=== PATIENT | female | born 1945 | race Caucasian/White ===

== ENCOUNTER 2019-08-18 10:38 | Outpatient (CLI) | payer MEDICARE ==
[2019-08-18 12:37] LABS: #Eosinphils 0.1 thou/uL (0.0-0.7); #Lymphocytes 1.2 thou/uL (1.20-3.40); #Monocytes 0.3 thou/uL (0.11-0.59); #Neutrophils 2.8 thou/uL (1.40-6.50); %Basophils 0.6 % (0.0-1.0); %Eosinophils 2.9 % (0.0-10.0); %Lymphocytes 27.8 % (21.0-51.0); %Monocytes 6.1 % (0.0-10.0); %Neutrophils 62.6 % (42.0-75.0); Hemoglobin 14.2 g/dL (12.0-16.0); Mean Corpuscular HGB CONC 34.9 g/dL (32.0-36.0); Mean Corpuscular Hemoglobin 29.7 pg (27.0-31.0); Mean Platelet Volume 8.8 fL (7.4-10.4); Platelet Count 225 thou/uL (130-400); Red Blood Cell (RBC) Count 4.79 mill/uL (4.20-5.40); White Blood Cell (WBC) Count 4.4 thou/uL (4.8-10.8)
[2019-08-18 12:43] LABS: Bacteria/HPF None Seen HPF (None Seen); Bilirubin Negative (Negative); Blood, Urine Negative (Negative); Clarity Clear (Clear); Glucose, Urine (Dipstick) Normal (Negative); Leukocyte Negative Leu/uL (Negative); Nitrite Negative (Negative); Protein, Urine (Dipstick) Negative (Neg-Trace); RBC/HPF 0-3 HPF (0-3); Squamous Epithelial 0-3 HPF (0-3); Urobilinogen Normal mg/dL (Less than 2); WBC/HPF 0-3 HPF (0-3)
[2019-08-18 12:57] LABS: Anion Gap 14 mmol/L (10-20); BUN (Urea Nitrogen) 13 mg/dL (9.8-20.1); Calc. Creatinine Clearance 0 mL/min (70-130); Calcium 9.2 mg/dL (7.8-10.44); Carbon Dioxide 24 mmol/L (23-31); Chloride 106 mmol/L (98-107); Estimated GFR-MDRD 71; Glucose 82 mg/dL (83-110); Potassium 4.7 mmol/L (3.5-5.1); Sodium 139 mmol/L (136-145)
--- NOTE | 2019-08-20 17:24 | EKG ---
Test Reason : Blood Pressure : / mmHG Vent. Rate : 058 BPM Atrial Rate : 058 BPM P-R Int : 176 ms QRS Dur : 076 ms QT Int : 442 ms P-R-T Axes : 033 020 034 degrees QTc Int : 433 ms Sinus bradycardia with marked sinus arrhythmia Otherwise normal ECG No previous ECGs available Confirmed by ROM URRUTIA (2) on 08/20/2019 5:23:40 PM Referred By: YULIA Confirmed By:ROM URRUTIA
== END 2019-08-18 10:39 | disposition home or self-care (01) ==
LOC: LABBT 10:38
PROVIDERS: ATTEND Orthopaedic Surgery Hand Surgery
DX: Z01.818 Encounter for other preprocedural examination (principal); M18.12 Unilateral primary osteoarthritis of first carpometacarpal joint, left hand
CPT/HCPCS: 80048; 81001; 85025; 93005; 93010

== ENCOUNTER 2019-08-25 05:49 | Day surgery (SDC) | payer MEDICARE ==
[2019-08-18 11:00] VITALS: BMI 22.6
[2019-08-25] MEDS ORDERED: Famotidine/PF 20 mg/2ml Vial ONE (06:13)
[2019-08-25] MEDS ORDERED: Fentanyl 100 MCG/2 ML VIAL ONE ×2 (06:13→06:45)
[2019-08-25] MEDS ORDERED: Midazolam HCl 2 mg/2 ml Vial ONE (06:45)
[2019-08-25] MEDS ORDERED: Betamet Acet/Betamet Na Ph 30 MG/5 ML VIAL ONE (06:46)
[2019-08-25] MEDS ORDERED: Bupivacaine PF 0.5% 30 ML VIAL ONE (06:46)
[2019-08-25] MEDS ORDERED: Sodium Chloride 0.9% 10 ML ONE (06:46)
[2019-08-25] MEDS ORDERED: Bacitracin Zinc Ointment 30 gm TUBE ONE (06:46)
[2019-08-25] MEDS ORDERED: Bupivacaine HCl 0.5%/Epinephrine 1:200,000/PF 30 ml Vial ONE (10:48)
[2019-08-25] MEDS ORDERED: Ondansetron PF 4 MG/2 ML Vial ONE (11:13)
[2019-08-25] MEDS ORDERED: ePHEDrine 50 MG/ML VIAL ONE (11:13)
[2019-08-25] MEDS ORDERED: PROPOFOL 200 MG/20 ML VIAL ONE (11:13)
[2019-08-25] MEDS ORDERED: Dexamethasone 20 MG/5 ML VIAL ONE (11:13)
[2019-08-25] MEDS ORDERED: Lidocaine 1% PF 5 ML VIAL ONE (11:13)
[2019-08-25] MEDS ORDERED: Rocuronium Bromide 10 MG/ML (10ML VIAL) ONE (11:13)
[2019-08-25] MEDS ORDERED: Glycopyrrolate 0.2 MG/ML 5 ML SYRINGE ONE (11:13)
[2019-08-25] MEDS ORDERED: Ketorolac Tromethamine 30 MG/ML VIAL ONE (11:22)
--- NOTE | 2019-08-25 15:02 | OP ---
DATE OF PROCEDURE: 08/25/2019 PREOPERATIVE DIAGNOSES: 1. 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 2. Carpometacarpal joint severe stage IV osteoarthritis. 3. Complete obliteration of the carpometacarpal joint with marked osteophyte formation and subluxation and involvement of the scaphotrapezial joint as well. 4. Over 65-degree laxity with hyperextension of the metacarpophalangeal joint at the same thumb. PROCEDURE PERFORMED: 1. Metacarpophalangeal joint capsulodesis with joint pinning. 2. Flexor carpi radialis tendon transfer to the thumb. 3. Ligament replacement tendon interposition, carpometacarpal joint arthroplasty, left thumb. TOURNIQUET TIME: 121 minutes. ESTIMATED BLOOD LOSS: 20 mL. INJECTABLE: None. ANESTHESIA: Block to augment intubation with LMA. DESCRIPTION OF PROCEDURE: After successful general endotracheal anesthesia, the limb was prepped and draped. The patient had marked hyperlaxity, so after doing appropriate time-out, obtaining appropriate consent matched with the procedure, we then exsanguinated the limb, inflated tourniquet to 250 mmHg pressure began with a zigzag incision over the center of the MP joint of the thumb. We released the A1 seble, underneath was the thick palmar capsule and plate. We then made a V-shaped incision, elevated it down to bone. There was joint fluid escaping. We then used a 4-0 Prolene with 5 sutures in a [id number] technique to advance the proximal part underneath the distal part and shortened by about 1.5 to 2 mm. We placed the suture in position, flexed the thumb to 25 degrees of flexion and passed the K-wire across it, which the C-arm confirmed to be in excellent position, and then, cut the wire and bent it with 2 mm protruding, but bent. The patient then had these sutures tied. We then closed the incision with interrupted 4-0 nylon in a simple pattern. We made a curvilinear incision at the base of the thumb, carried through skin and subcutaneous tissue, identified the interval between the extensor pollicis brevis and the abductor pollicis, entered the capsule. We tagged the capsule with a 2-0 undyed Vicryl. We then the thenar muscle and exposed, beginning circumferentially from radial, superior, and distal to ulnar superior and distal. The soft tissue surrounded in the trapezium. We then placed a large K-wire inside the trapezium, identified, and used as a handle. We identified the flexor carpi radialis tendon and made a zigzag incision proximal third of forearm and the distal one-third forearm to harvest it. Once we had the flexor radialis from the ulnar side of the trapezium, we then completely lifted the joint capsule off the scaphoid and that off the trapezoid lifted and then removed. In the large posterior ulnar capsule, we placed a heavy 3-0 suture. We then used a Hohmann, protected the ulnar side of the base of the thumb metacarpal and beginning at approximately 12 mm along the proximal radial edge of the metacarpal bone. We drilled a 3.5 tunnel, expanded it slightly, and the tunnel was oblique and angled about 40 degrees and exited the thumb at the junction of the metacarpal bone with the chondral surface. We removed all osteophytes, we expanded it, we curetted it, it was approximately 4 mm tunnel. We harvested the flexor carpi radialis using the 2 incisions as listed above, then denuded of all muscle and passed it from the proximal ulnar side to the distal radial side. We held it in appropriate position in relative to the base of the index finger metacarpal, and then reduced it anatomically, maintaining the [place] line of the metacarpal bases. We then took the tendon that was already passed to tension it in 6 different places with Prolene, 2 radial to the abductor pollicis longus, and 2 along the base of the thumb metacarpal, ulnar to the abductor pollicis longus. We then weaved "anchovy type" weave with 2 heavy ends of the 3-0 suture, Prolene, using a Iraj needle and then tied this deep to the joint capsule in the interspace created by trapeziectomy. We then closed the capsule, that was already tagged with 2-0 undyed Vicryl, repaired the musculotendinous junction of thenar muscle back with 2-0 undyed Vicryl and released the tourniquet. We obtained hemostasis. We closed all the remaining wounds including the 2 forearm FCR harvest sites and the primary thumb CMC incision with a running 4-0 Monocryl and then Steri-Strips. The patient left the operating room with bulky dress and a palmar thumb spica splint. No evidence of anesthetic or operative complication. Job ID: [id number]
--- NOTE | 2019-08-30 15:35 | RAD ---
LEFT HAND THREE VIEWS: 08/30/19 HISTORY: Intraoperative films. A series of C-arm films which show postoperative change at the first metacarpophalangeal joint level and pin placement at the base of the second metacarpal. There has been resection of the trapezium. IMPRESSION: Postoperative changes of the wrist region. POS: [facility]
== END 2019-08-25 14:22 | disposition home or self-care (01) ==
LOC: SDC 05:49
PROVIDERS: ATTEND Orthopaedic Surgery Hand Surgery
PROC: 0LU607Z Supplement Left Lower Arm and Wrist Tendon with Autologous Tissue Substitute, Open Approach (ICD-10-PCS; principal; 2019-08-25)
PROC: 0LB60ZZ Excision of Left Lower Arm and Wrist Tendon, Open Approach (ICD-10-PCS; 2019-08-25)
PROC: 0RQT0ZZ Repair Left Carpometacarpal Joint, Open Approach (ICD-10-PCS; 2019-08-25)
PROC: 0RGV04Z Fusion of Left Metacarpophalangeal Joint with Internal Fixation Device, Open Approach (ICD-10-PCS; 2019-08-25)
DX: M18.12 Unilateral primary osteoarthritis of first carpometacarpal joint, left hand (principal); M25.742 Osteophyte, left hand; Z79.899 Other long term (current) drug therapy
CPT/HCPCS: 25312; 25447; 26516; 73130; 76000; C1769; J0131; J0670; J0702; J1100; J1885; J2001; J2250; J2405; J2704; J3010; J3490; S0020; S0028

== ENCOUNTER 2021-12-18 14:34 | Outpatient (CLI) | payer MEDICARE ==
[2021-12-18 17:35] LABS: Bilirubin Neg (Negative); Blood, Urine Negative (Negative); Clarity Clear (Clear); Glucose, Urine (Dipstick) Normal (Negative); Ketone, Urine Negative (Negative); Leukocyte Negative (Negative); Nitrite Negative (Negative); Protein, Urine (Dipstick) Negative (Neg-Trace); Urobilinogen Normal mg/dL (Less than 2)
[2021-12-18 17:43] LABS: #Eosinphils 0.1 10x3/uL (0.0-0.5); #Monocytes 0.2 10x3/uL (0.0-1.1); #Neutrophils 3.7 10x3/uL (1.5-8.4); %Basophils 0.4 % (0.0-2.0); %Eosinophils 1.5 % (0.0-6.0); %Monocytes 4.2 % (0.0-10.0); %Neutrophils 76.7 % (40.0-75.0); Hemoglobin 12.6 g/dL (12.0-15.5); Mean Corpuscular HGB CONC 31.7 g/dL (32.0-36.0); Mean Corpuscular Hemoglobin 27.7 pg (27.0-33.0); Mean Corpuscular Volume 87.5 fl (81.6-98.3); Mean Platelet Volume 11.1 fl (7.4-10.4); Platelet Count 238 10x3/uL (150-450); RBC Distribution Width 12.8 % (11.5-14.5); Red Blood Cell (RBC) Count 4.55 10x6/uL (3.90-5.03); White Blood Cell (WBC) Count 4.8 10x3/uL (3.5-10.5)
[2021-12-18 18:10] LABS: Squamous Epithelial 0-3 HPF (0-3)
[2021-12-18 18:11] LABS: Bacteria/HPF Rare-Few HPF (None Seen); RBC/HPF 0-3 HPF (0-3); WBC/HPF 0-3 HPF (0-3)
[2021-12-19 09:13] LABS: SARS-CoV-2 PCR by NAA Not Detected (NotDetected)
== END 2021-12-18 14:35 | disposition home or self-care (01) ==
LOC: LABBT 14:34
PROVIDERS: ATTEND Orthopaedic Surgery Hand Surgery
DX: Z01.818 Encounter for other preprocedural examination (principal); G56.01 Carpal tunnel syndrome, right upper limb; Z20.822 Contact with and (suspected) exposure to COVID-19
CPT/HCPCS: 81001; 85025; 93005; U0003; U0005; 93010

== ENCOUNTER 2021-12-23 05:48 | Day surgery (SDC) | payer MEDICARE ==
[2021-12-05 11:06] VITALS: BMI 22.6
[2021-12-23] MEDS ORDERED: Betamet Acet/Betamet Na Ph 30 MG/5 ML VIAL ONE (06:20)
[2021-12-23] MEDS ORDERED: Bupivacaine PF 0.5% 30 ML VIAL ONE (06:20)
[2021-12-23] MEDS ORDERED: Bacitracin Zinc Ointment 30 gm TUBE ONE (06:20)
[2021-12-23] MEDS ORDERED: Fentanyl 100 MCG/2 ML VIAL ONE (06:42)
[2021-12-23] MEDS ORDERED: PROPOFOL 20 ML ONE (06:43)
[2021-12-23] MEDS ORDERED: Famotidine/PF 20 mg/2ml Vial ONE (06:43)
[2021-12-23] MEDS ORDERED: ceFAZolin 2 GM/Dextrose 50 ML IVPB ONE (06:55)
[2021-12-23] MEDS ORDERED: Metoclopramide HCl 10 MG/2 ML VIAL ONE (07:32)
[2021-12-23] MEDS ORDERED: Ketorolac Tromethamine 30 MG/ML VIAL ONE (07:32)
[2021-12-23] MEDS ORDERED: Lidocaine 1% PF 5 ML VIAL ONE (07:32)
[2021-12-23] MEDS ORDERED: PROPOFOL 200 MG/20 ML VIAL ONE (07:32)
[2021-12-23] MEDS ORDERED: Ondansetron PF 4 MG/2 ML Vial ONE (07:32)
== END 2021-12-23 09:50 | disposition home or self-care (01) ==
LOC: SDC 05:48
PROVIDERS: ATTEND Orthopaedic Surgery Hand Surgery
PROC: 01N50ZZ Release Median Nerve, Open Approach (ICD-10-PCS; principal; 2021-12-23)
DX: G56.01 Carpal tunnel syndrome, right upper limb (principal); M19.031 Primary osteoarthritis, right wrist; M81.0 Age-related osteoporosis without current pathological fracture; I10 Essential (primary) hypertension; Z79.82 Long term (current) use of aspirin; Z79.899 Other long term (current) drug therapy; Z98.890 Other specified postprocedural states
CPT/HCPCS: C1776; J0690; J0702; J2704; J3010; S0020; S0028